=== PATIENT | female | born 1990 | race Caucasian/White ===

== ENCOUNTER 2023-01-28 09:44 | Inpatient (IN) | payer OTHER ==
[~2023-01-28] VITALS: Ht 165.1 cm; Wt 104.1 kg
[2023-02-01] VITALS (54 sets, daily range): BP systolic 97–163; BP diastolic 48–84; PULSE 73–122; TEMP 98.1–98.7
[2023-02-01] MEDS ORDERED: MUCINEX 60600 MG/TA1 PO (07:20)
[2023-02-01] MEDS ORDERED: FLONASEALLERGY (07:20)
[2023-02-01] MEDS ORDERED: ZYRTEC5 MG PO (07:20)
[2023-02-01] MEDS ORDERED: PRENATAL TABLET PO (07:20)
[2023-02-01] MEDS ORDERED: PEPCID COMPLETE1 CTB (07:20)
[2023-02-01 08:10] LABS: BASO % 0.2 % (0.0-2.0); EOS # 0.1 K/mm3 (0.0-0.7); EOS % 1.4 % (0.0-4.0); GRAN # 6.7 K/mm3 (1.4-6.5); GRAN % 68.5 % (42.2-75.2); HEMATOCRIT 37.4 % (37.0-47.0); HEMOGLOBIN 13.5 g/dl (12.5-16.0); LYMPH # 2.2 K/mm3 (1.2-3.4); LYMPH % 22.1 % (20.0-51.0); MEAN CELL VOLUME 92 fl (80.0-100.0); MEAN CORPUSCULAR HEMOGLOBIN 33 pg (27-31); MEAN CORPUSCULAR HGB CONC 36 g/dl (33.0-37.0); MEAN PLATELET VOLUME 9.5 fl (7.4-10.4); MONO # 0.7 K/mm3 (0.1-0.6); MONO % 7.3 % (1.7-9.3); PLATELET COUNT 251 K/mm3 (130-400); RED BLOOD COUNT 4.05 M/mm3 (4.10-5.30); REDCELL DISTRIBUTION WIDTH-CV 13.3 % (11.5-14.5)
--- NOTE | 2023-02-01 12:00 | NUR ---
[id number] PT ON WIRLESS MONITOR- AMBULATING
--- NOTE | 2023-02-01 12:15 | NUR ---
[id number] PT SITTING UP FOR EPIDURAL THIS RN AT BEDSIDE Rfaael COLUNGA CRNA PLACES EPIDURAL 1210 TEST DOSE GIVEN. PT TOLERATES WELL
--- NOTE | 2023-02-01 13:00 | NUR ---
1245 THIS RN AT PT'S BEDSIDE PLACING VIEYRA CATHETER. THIS RN NOTES LATE DECELERATIONS ON FHR MONITOR. 1247 SVE BY THIS RN . 1249 PT REPOSITIONED TO [facility]. 1252 LATE DECELERATION NOTED BY THIS RN. PT REPOSITIONED TO LEFT LATERAL. 1300 DR TA UPDATED ABOUT LATE DECELERATIONS. DR TA STATES "LET ME KNOW IF LATE DECELERATIONS CONTINUE."
--- NOTE | 2023-02-01 13:17 | NUR ---
1317 THIS RN IN ROOM. LR BOLUS INFUSING. 1318 FHR RECOVERING
--- NOTE | 2023-02-01 13:48 | NUR ---
LATE DECELERATION NOTED. PT MOVED TO RIGHT LATERAL BY THIS RN
--- NOTE | 2023-02-01 14:55 | NUR ---
PT SWITCHED FROM RIGHT LATERAL TO JOY. THIS RN NOTES FHR DECELERATION WITH POSITION CHANGE
--- NOTE | 2023-02-01 18:20 | NUR ---
This nurse receives report from Cira Torres RN. Pt SVE /-[address] Scott. Pt is GBS negative, has an epidural, NKDA, on second bag of LR, and currently at 14mu of Pitocin. Per Dr. Scott Pitocin can be increased and that she will be back around 1930 to reassess pt. This nurse can have a credit of 1500 for LR and Pitocin. Care assumed by this nurse.
--- NOTE | 2023-02-01 19:15 | NUR ---
Ctx tracing intermittently due to pt positioning. This nurse at pt bedside palpating pt abdomen, with pt consent and explanation, attempting to readjust external monitors.
--- NOTE | 2023-02-01 19:30 | NUR ---
FHR and ctx tracing intermittently due to pt positioning. This nurse at pt bedside palpating pt abd, with pt consent and explanation, attempting to readjust external monitors x2. Pt SLR in WL. Pt SLR in WR. Pt positioned into [employer] WR.
--- NOTE | 2023-02-01 19:45 | NUR ---
FHR tracing intermittently due to pt positioning. This nurse at pt bedside palpating pt abd, with pt consent and explanation, attempting to readjust external monitors x2. Dr. Scott at pt bedside. SVE 0. POC discussed with pt and pt spouse. Pt verbalized understanding and agreement of POC.
--- NOTE | 2023-02-01 20:00 | NUR ---
Ctx tracing intermittently due to pt positioning. This nurse at pt bedside palpating pt abd, with pt consent and explanation, attempting to readjust external monitors x2.
--- NOTE | 2023-02-01 21:00 | NUR ---
Ctx tracing intermittently due to pt positioning. This nurse at pt bedside palpating pt abd, with pt consent and explanation, attempting to readjust external monitor. 2053: SVE, with pt consent and explanation, lip/100/0. Pt positioned into LL with stirrups in place.
--- NOTE | 2023-02-01 21:45 | NUR ---
213: SVE, with pt consent and explanation, C/100/0. 2131: This nurse notified Dr. Scott, via phonecall, of pt progress. Pt is complete. See physician notification for further detail.
--- NOTE | 2023-02-01 22:00 | NUR ---
FHR tracing intermittently due to pt pushing with each ctx. This nurse at pt bedside throughout entire second stage. This nurse palpating pt abd, with consent and explanation, attempting to readjust external monitor. 2139: Duane BARONE. 2145: Pt starts pushing with each ctx. FHR tracing intermittently with each ctx. This nurse at pt bedside throughout entire second stage. This nurse palpating pt abd, with consent and explanation, attempting to readjust external monitor.
--- NOTE | 2023-02-01 22:15 | NUR ---
FHR tracing intermittently due to pt pushing with each ctx. This nurse palpating pt abd, with pt consent and explanation, attempting to readjust external monitors. Pt positioned into SL pushing at 2214. This nurse at pt bedside throughout entire second stage.
--- NOTE | 2023-02-01 22:30 | NUR ---
FHR tracing intermittently with each pt push with ctx. This nurse at pt bedside throughout entire second stage. This nurse palpating pt abd, with pt consent and explanation, attempting to readjust external monitors. 2229: Dr. Scott notified, via phonecall, with pt progress and ready for delivery.
--- NOTE | 2023-02-01 22:59 | NUR ---
FHR tracing intermittently with pt push with each ctx. This nurse at pt bedside throughout entire second stage. This nurse palpating pt abd, with pt consent and explanation, attempting to readjust external monitors. 2241: Dr. Scott at pt bedside. 2243: Pt resumes pushing with each ctx. 2258: of viable baby boy at 2259, meconium stained fluid noted at delivery. Baby to mothers abd. Cord clamped and cut by Dr. Scott. Baby care assumed by nursery Raghavendra Corey RN. Spontaneous delivery of intact placenta at 2304. Pitocin started at 333 mL/hr per protocol. Dr. Scott begins second degree and bilateral sulcus laceration at 2300. Recovery started at 2325.
[2023-02-02] VITALS (10 sets, daily range): BP systolic 101–129; BP diastolic 58–82; PULSE 83–111; TEMP 97.6–98.5
--- NOTE | 2023-02-02 07:15 | NUR ---
THIS RN GETS REPORT FROM RJ DEJESUS LPN
--- NOTE | 2023-02-02 09:09 | NUR ---
Initial visit; Parents thanked Dumper Operator for offering congratulations and God's blessings for the of their son. Dumper Operator thanked family for choosing our hospital.
[2023-02-02] MEDS ORDERED: IBU800 M1 PO (10:13)
--- NOTE | 2023-02-03 06:39 | NUR ---
REPORT RECIEVED FROM AIR [employer]UBMARINE OFFICER RN AT 0618
[2023-02-03 07:45] VITALS: BP 118/67; PULSE 81; TEMP 97.6
--- NOTE | 2023-02-03 08:24 | NUR ---
RN BEDSIDE; DISCUSSES POC WITH PT AND S.O. ALL QUESTIONS ANSWERED AT THIS TIME AND PT VERBALIZES UNDERSTANDING.
--- NOTE | 2023-02-03 13:35 | NUR ---
2027 RN AND PT DISCUSS WHAT TO EXPECT IN TERMS OF VAGINAL CARE/DORETHA CARE. PT REPORTS DISCOMFORT IN VAGINA WITH MOVEMENT; RN DISCUSSES PAIN CONTROL METHODS/OPTIONS, SOME DISCOMFORT EXPECTED DUE TO VAGINAL DELIVERY, S/S OF WHEN TO CONTACT HEALTH CARE PROVIDEER. PT VERBALIZES UNDERSTANDING AND ALL QUESTIONS ANSWERED AT THIS TIME.
--- NOTE | 2023-02-03 15:35 | NUR ---
1515 RN GIVES PT BOTH WRITTEN AND VERBAL DISCHARGE INSTRUCTIONS, INFORMS PT OF REASONS TO CALL/COME BACK AND SIGNS/SYMPTOMS TO LOOK OUT FOR. PT VERBALIZES UNDERSTANDING AND ALL QUESTIONS ANSWERED.
== END 2023-02-03 15:15 | disposition home or self-care (01) | DRG 807 ==
LOC: LDR 02-01 06:53 → OB 02-01 06:53
PROVIDERS: ADMIT Student in an Organized Health Care Education/Training Program
PROC: 10E0XZZ Delivery of Products of Conception, External Approach (ICD-10-PCS; principal; 2023-02-01)
PROC: 0KQM0ZZ Repair Perineum Muscle, Open Approach (ICD-10-PCS; 2023-02-01)
PROC: 10907ZC Drainage of Amniotic Fluid, Therapeutic from Products of Conception, Via Natural or Artificial Opening (ICD-10-PCS; 2023-02-01)
PROC: 3E033VJ Introduction of Other Hormone into Peripheral Vein, Percutaneous Approach (ICD-10-PCS; 2023-02-01)
DX: O48.0 Post-term pregnancy (principal); Z37.0 Single live birth; O70.1 Second degree perineal laceration during delivery; O77.0 Labor and delivery complicated by meconium in amniotic fluid; O36.63X0 Maternal care for excessive fetal growth, third trimester, not applicable or unspecified; O34.13 Maternal care for benign tumor of corpus uteri, third trimester; D25.9 Leiomyoma of uterus, unspecified; O99.284 Endocrine, nutritional and metabolic diseases complicating childbirth; E78.00 Pure hypercholesterolemia, unspecified; O99.62 Diseases of the digestive system complicating childbirth; K21.9 Gastro-esophageal reflux disease without esophagitis; O35.9XX0 Maternal care for (suspected) fetal abnormality and damage, unspecified, not applicable or unspecified; O99.214 Obesity complicating childbirth; Z3A.40 40 weeks gestation of pregnancy; Z14.1 Cystic fibrosis carrier
CPT/HCPCS: J2405; J2590; J7120